=== PATIENT | male | born 1955 | race Caucasian/White ===

== ENCOUNTER 2018-02-20 18:31 | Inpatient (IN) | payer MEDICARE, OTHER ==
[~2018-02-20] VITALS: Ht 172.7 cm; Wt 98.0 kg
[2018-02-20 18:37] VITALS: BP 151/86
--- NOTE | 2018-02-20 18:42 | NUR ---
CAME IN WITH C/O EPIGASTRIC PAIN, VOMITING,X6 AND CHILLS, STARTED AT 1500HOUR.
--- NOTE | 2018-02-20 19:14 | NUR ---
RECIEVED REPORT FORM JORY SOTELO.
[2018-02-20] MEDS ORDERED: NACL 0.9% 500 ML IV ONE (19:25)
[2018-02-20] MEDS ORDERED: ONDANSETRON 4 MG/2 ML VIAL IVP ONE ×2 (19:25→19:45)
--- NOTE | 2018-02-20 19:33 | NUR ---
Dr. Sorenson evaluating patient at bedside.
[2018-02-20] MEDS ORDERED: PANTOPRAZOLE 40 MG INJ VIAL IVP ONE (19:45)
[2018-02-20] MEDS ORDERED: KETOROLAC 30 MG/ML VIAL IVP ONE (19:45)
--- NOTE | 2018-02-20 20:07 | NUR ---
PT TEMP 101.4, AMBER ZAMBRANO NOTIFIED
--- NOTE | 2018-02-20 20:19 | NUR ---
Ultrasound at bedside.
[2018-02-20] MEDS ORDERED: ACETAMINOPHEN 325 MG TAB PO ONE ×2 (20:25→20:35)
[2018-02-20 20:40] LABS: HEMOGLOBIN 15.1 g/dL (12.0-18.0); MEAN CORPUSCULAR HEMOGLOBIN 26 pg (27-31); MEAN CORPUSCULAR HGB CONC 32 g/dL (33-37); MEAN CORPUSCULAR VOLUME 81.7 fL (80-94); PLATELET COUNT (AUTO) 142 K/uL (140-450); RED BLOOD CELL COUNT(AUTO) 5.76 MIL/uL (4.20-6.10); RED CELL DISTRIBUTION WIDTH 13.3 % (11.6-13.7); WHITE BLOOD COUNT (AUTO) 6.9 K/uL (4.8-10.8)
[2018-02-20 20:58] LABS: ALBUMIN 3.8 g/dL (3.4-5.0); ANION GAP 12.3 (8-16); CARBON DIOXIDE 29.6 mmol/L (21-32); CREATININE 1.3 mg/dL (0.7-1.3); POTASSIUM 3.9 mmol/L (3.5-5.1); TOTAL BILIRUBIN 2.1 mg/dL (0.0-1.0)
[2018-02-20 20:59] LABS: LYMPHOCYTES % (MANUAL) 1 % (20-46); MONOCYTES % (MANUAL) 4 % (5-12)
[2018-02-20] MEDS ORDERED: NACL 0.9% 2,000 ML IV ONE (21:20)
[2018-02-20] MEDS ORDERED: PIPERACILLIN/TAZOBACTAM 3.375 GM in DEXTROSE 5% 50 ML IV ONE (21:20)
[2018-02-20] MEDS ORDERED: metroNIDAZOLE 500 MG/NS PREMIX 100 ML IV ONE (21:30)
[2018-02-20 21:38] LABS: PROTHROMBIN TIME 10.1 secs (10.8-13.4)
[2018-02-20] MEDS ORDERED: PIPERACILLIN/TAZOBACTAM 3.375 GM VIAL IV ONE (21:42)
[2018-02-20] MEDS ORDERED: ACETAMINOPHEN 325 MG TAB PO PRN (22:25)
[2018-02-20] MEDS ORDERED: DOCUSATE SODIUM 100 MG GELCAP PO PRN (22:25)
[2018-02-20] MEDS ORDERED: LORazepam 2 MG/ML VIAL IM/IVP PRN (22:25)
[2018-02-20] MEDS ORDERED: ONDANSETRON 4 MG/2 ML VIAL IM/IVP PRN (22:25)
[2018-02-20] MEDS ORDERED: ZOLPIDEM 5 MG TAB PO PRN (22:25)
[2018-02-20 23:00] VITALS: BP 99/54
--- NOTE | 2018-02-20 23:00 | NUR ---
ADMITTED A 62 M FROM ER. CAME BY GURADY AND ACCOMPANIED BY . CAME DUE TO EPIGASTRIC PAIN AND NAUSEA ,VOMITING. AWAKE,ALERT AND ORIENTED X4. AMBULATORY, SKIN INTACT. WITH IVF INFUSING ON THE LT AC G#20 . CLEAR AND PATENT. DENIES ANY PAIN AT THIS TIME. ORINETED PT TO HOSPITAL ROUTINES . PLAN OF CARE DISCUSSED AND VERBALIZED UNDERSTANDING. CALL LIGHT PLACED WITHIN EASY REACH. BED ON LOWEST POSITION. WILL FOLLOW UP ADMIT ORDERS AND WILL CONTINUE TO MONITOR.
--- NOTE | 2018-02-20 23:00 | NUR ---
Patient will be admitted to care of Gerard ZAMBRANO. Admited to tele via gurney with VSS. PT will go to room 104B. Belongings list completed. Report to Stacey SOTELO.
[2018-02-20 23:49] LABS: CHOL/HDL RATIO 5.5 (1-4.5); MAGNESIUM 1.6 mg/dL (1.8-2.4); PHOSPHORUS 1.4 mg/dL (2.5-4.9)
--- NOTE | 2018-02-21 00:34 | NUR ---
MAGNESIUM LEVEL 1.6 , DR LACEY MADE AWARE. WILL DO ORDERS.
--- NOTE | 2018-02-21 01:00 | NUR ---
TEMPERATURE TAKEN 98.6. DENIES PAIN. WILL CONTINUE TO MONITOR.
[2018-02-21 01:23] LABS: BARBITURATE, URINE NEG. ng/ml (NEG <=200); BENZODIAZEPINE, URINE NEG. ng/mL (NEG <=200); CANNABINOID, URINE NEG. ng/mL (NEG <=50); COCAINE, URINE NEG. ng/mL (NEG <=300); OPIATE, URINE NEG. ng/mL (NEG <=2000); PHENCYCLIDINE SCREEN,URINE NEG. ng/mL (NEG <=25)
[2018-02-21 01:29] LABS: APPEARANCE,URINE CLEAR (CLEAR); BILIRUBIN,URINE 1+ (NEGATIVE); BLOOD, URINE NEGATIVE (NEGATIVE); COLOR,URINE YELLOW (YELLOW); LEUKOCYTE ESTERASE ,URINE NEGATIVE (NEGATIVE); NITRITE, URINE NEGATIVE (NEGATIVE); PH,URINE 7.5 (5.0-9.0); UGLUCOSE NEGATIVE (NEGATIVE)
[2018-02-21] MEDS: NACL 0.9% 1,000 ML IV SCH ×4 (01:34→21:29)
[2018-02-21 01:38] LABS: RBC,URINE 0-5 (RARE) /HPF (0-5); WBC,URINE 0-5 (RARE) /HPF (0-5)
--- NOTE | 2018-02-21 02:00 | NUR ---
PT IS ASLEEP. NO S/S OF ANY DISCOMFORT NOR PAIN NOTED.
[2018-02-21] MEDS ORDERED: MAG SULF 2000 MG/WATER PREMIX 50 ML IV SCH (02:30)
[2018-02-21] MEDS ORDERED: SODIUM PHOS / POTASSIUM PHOS 1 PKT PDR PO SCH (02:30)
--- NOTE | 2018-02-21 03:17 | NUR ---
PT SAID OK TO GET FLU VACCINE HERE. DR. LACEY MADE AWARE.
[2018-02-21] MEDS ORDERED: INFLUENZA VIRUS VACCINE QUAD 0.5 ML SYR IMVAC PRN (03:20)
[2018-02-21 04:10] VITALS: BP 127/63
[2018-02-21] MEDS ORDERED: PIPERACILLIN/TAZOBACTAM 3.375 GM VIAL IV ONE (05:35)
[2018-02-21] MEDS: PIPER/TAZO 3.375GM/D5W PREMIX 50 ML IV SCH ×3 (05:42→18:53)
--- NOTE | 2018-02-21 06:00 | NUR ---
PT HAS BEEN STABLE DURING THE NIGHT . WITH NO FEVER NOR PAIN NOTED. NO NAUSEA /VOMITING ALSO NOTED.
[2018-02-21 06:02] LABS: HEMATOCRIT 42.4 % (36-52); HEMOGLOBIN 13.6 g/dL (12.0-18.0); LYMPHOCYTES # (AUTO) 0.1 K/uL (2.0-11.5); LYMPHOCYTES % (AUTO) 1.8 % (20.5-51.1); MEAN CORPUSCULAR HEMOGLOBIN 26 pg (27-31); MEAN CORPUSCULAR HGB CONC 32 g/dL (33-37); MEAN CORPUSCULAR VOLUME 81.7 fL (80-94); MONOCYTES # (AUTO) 0.2 K/uL (0.8-1.0); MONOCYTES % (AUTO) 3.2 % (1.7-9.3); NEUTROPHILS # (AUTO) 5.5 K/uL (1.8-7.7); PLATELET COUNT (AUTO) 129 K/uL (140-450); RED BLOOD CELL COUNT(AUTO) 5.19 MIL/uL (4.20-6.10); RED CELL DISTRIBUTION WIDTH 13.4 % (11.6-13.7); WHITE BLOOD COUNT (AUTO) 5.8 K/uL (4.8-10.8)
[2018-02-21] MEDS: SODIUM PHOS / POTASSIUM PHOS 1 PKT PDR PO SCH ×3 (06:44→16:30)
[2018-02-21 06:45] LABS: ANION GAP 13.5 (8-16); CARBON DIOXIDE 26.4 mmol/L (21-32); CREATININE 1.4 mg/dL (0.7-1.3); POTASSIUM 3.9 mmol/L (3.5-5.1)
[2018-02-21 06:46] LABS: MAGNESIUM 2.3 mg/dL (1.8-2.4); PHOSPHORUS 3.5 mg/dL (2.5-4.9)
--- NOTE | 2018-02-21 07:05 | NUR ---
ENDORSED PT IN STABLE CONDITION TO AM NURSE.
--- NOTE | 2018-02-21 07:10 | NUR ---
RECEIVED PT FROM HYDRAULIC TECHNICIAN NURSEALOK, PT IS ASLEEP LYING ON THE BED WITH AN IV LINE ON THE LEFT AC G. 20 WITH NS AT 130ML/HR, INFUSING, RESPIRATION EVEN AND NO SOB NOTED, PT DENIES PAIN AT THIS TIME. SIDE RAILS ARE UP AND CALL LIGHT WITHIHN REACH, NO SIGN OF DISTRESS NOTED AND WILL CONTINUE TO MONITOR PT.
[2018-02-21 08:00] VITALS: BP 121/64
--- NOTE | 2018-02-21 08:36 | NUR ---
PATIENT HAS BEEN SCREENED AND CATEGORIZED HIGH NUTRITION RISK. PATIENT WILL BE SEEN WITHIN 1-2 DAYS OF ADMISSION. 02/21/18-02/22/[address]
[2018-02-21] MEDS ORDERED: ONDANSETRON 4 MG/2 ML VIAL IVP ONE (10:55)
[2018-02-21] MEDS ORDERED: GLYCOPYRROLATE 0.2 MG/ML VIAL IV ONE (10:55)
[2018-02-21] MEDS ORDERED: DEXAMETHASONE 4 MG/ML VIAL IVP ONE (10:55)
[2018-02-21] MEDS ORDERED: PHENYLEPHRINE 10 MG/ML VIAL IV ONE (10:55)
[2018-02-21 12:00] VITALS: BP 117/64
--- NOTE | 2018-02-21 12:08 | NUR ---
PT IS AWAKE AND FAMILY ON THE BEDSIDE, MEDICATIONS GIVEN VIA ORAL AND IVPB AND PT TOLERATED IT, V/S TAKEN AND IS WITHIN NORMAL LIMIT. WILL CONTINUE TO MONITOR PT.
--- NOTE | 2018-02-21 12:45 | NUR ---
DR. LUNDBERG CAME TO PT'S ROOM AND ASSESSED THE PT. DR. LUNDBERG MADE A VERBAL ORDER TO OBTAIN CONSENT FROM THE PT FOR A LAPAROSCOPIC CHOLECYSTECTOMY CHOLANGIOGRAM WITH POSSIBLE OPEN. ACKNOWLEDGED AND WILL CARRY OUT ORDER.
[2018-02-21] MEDS ORDERED: BUPIVACAINE-MPF 0.25% 30 ML VIAL INJ ONE (14:01)
--- NOTE | 2018-02-21 14:08 | NUR ---
INFORMED DR. BALL OF THE SURGERY THAT DR. LUNDBERG WILL DO TO THE PT, LAPAROSCOPIC CHOLECYSTECTOMY CHOLANGIOGRAM WITH POSSIBLE OPEN, MD ACKNOWLEDGED AND SAID THAT SHE WILL PLACE THE ORDER.
--- NOTE | 2018-02-21 14:35 | NUR ---
PT WAS OF THE UNIT NOW FOR A LAPAROSCOPIC CHOLECYSTECTOMY CHOLANGIOGRAM WITH POSSIBLE OPEN AND WAS TAKEN BY OR NURSES. PT IS STABLE AT THIS TIME.
[2018-02-21] MEDS ORDERED: fentaNYL 0.05 MG/ML VIAL ONE (15:07)
[2018-02-21] MEDS ORDERED: HYDROmorphone PFS 2 MG/ML SYR ONE (15:07)
[2018-02-21] MEDS ORDERED: ROCURONIUM 50 MG/5 ML VIAL IV ONE (15:09)
[2018-02-21] MEDS ORDERED: SUCCINYLCHOLINE CHLORIDE 200 MG/10 ML VIAL IV ONE (15:09)
[2018-02-21] MEDS ORDERED: PROPOFOL 200 MG/20 ML VIAL IV ONE (15:09)
[2018-02-21] MEDS ORDERED: DESFLURANE 240 ML BTL INH ONE (15:09)
[2018-02-21] MEDS ORDERED: MORPHINE SULFATE 4 MG/ML SYR IVP PRN (15:15)
[2018-02-21] MEDS ORDERED: ACETAMINOPHEN/CODEINE 300/30MG 1 TAB PO PRN (15:15)
[2018-02-21] MEDS ORDERED: ONDANSETRON 4 MG/2 ML VIAL IVP PRN ×2 (15:15→17:20)
[2018-02-21] MEDS ORDERED: GLUCAGON 1 MG VIAL ONE (16:27)
[2018-02-21] MEDS ORDERED: HYDROmorphone 1 MG/ML AMP IVP PRN (17:20)
--- NOTE | 2018-02-21 17:42 | NUR ---
PATIENT OUT OF ROOM IN SURGERY AT THIS TIME WATCH CRYSTAL GRINDER TO ATTEMPT INCENTIVE SPIROMETRY THERAPY AT A LATER TIME WATCH CRYSTAL GRINDER TO ENDORSE TO NOC WATCH CRYSTAL GRINDER
[2018-02-21 17:52] LABS: ANION GAP 16.2 (8-16); CARBON DIOXIDE 24.7 mmol/L (21-32); CREATININE 1.5 mg/dL (0.7-1.3); POTASSIUM 3.9 mmol/L (3.5-5.1)
[2018-02-21 17:58] LABS: ALBUMIN 3.2 g/dL (3.4-5.0); TOTAL BILIRUBIN 3.5 mg/dL (0.0-1.0)
[2018-02-21 18:35] VITALS: BP 141/73
--- NOTE | 2018-02-21 18:35 | NUR ---
PT IS BACK TO ROOM FROM SURGERY, LAPAROSCOPIC CHOLECYSTECTOMY, CHOLANGIOGRAM WITH HIDA SCAN, V/S TAKEN AND IS WITHIN NORMAL LIMIT. PT DENIES PAIN AT THIS TIME AND WILL CONTINUE TO MONITOR PT.
--- NOTE | 2018-02-21 19:00 | NUR ---
PT WAS HOOKED UP TO HIS IV LINE AND MEDICATION WAS GIVEN VIA IVPB AND PT TOLERATED IT. PT WAS STARTED ON THE CLEAR LIQUID DIET ALSO AND IS TOLERATING IT, NO SIGN OF NAUSEA OR VOMITING. ISSA BULB WAS IN PLACE. WILL ENDORSED TO CHANCELLOR NURSE FOR MONITORING.
--- NOTE | 2018-02-21 19:20 | NUR ---
ENDORSED PT TO LAND LEASES AND RENTALS MANAGER NURSEANGI FOR CONTINUITY OF CARE. PT IS STABLE AT THIS TIME WITH FAMILY ON THE BEDSIDE.
--- NOTE | 2018-02-21 19:25 | NUR ---
RECEIVED PATIENT RESTING ON BED ACCOMPANIED BY FAMILY MEMBERS. EXPLAINED PLAN OF CARE. DENIES PAIN. BED IN LOW LOCKED POSITION. CALL LIGHT WITHIN REACH. WILL CONTINUE TO MONITOR.
--- NOTE | 2018-02-21 20:00 | NUR ---
V/ S TAKEN AND RECORDED. DENIES PAIN. NO S/STRESS NOTED. REPOSITIONED AND MACHINIST FIRST CLASS ASSISTED PATIENT TO THE BATHROOM. EXPLAINED PATIENT TO CALL FOR ASSISTANCE. BED IN LOW LOCKED POSITION. CALL LIGHT WITHIN REACH.
--- NOTE | 2018-02-21 20:00 | NUR ---
NOTIFIED DR. LACEY ABOUT BLOOD CULTURE RESULT NO NEW ORDER MADE. WILL CONTINUE TO MONITOR.
--- NOTE | 2018-02-21 20:30 | NUR ---
CHECKED ON PATIENT FOR IS. PT IS ASLEEP. WILL FOLLOW UP WHEN PT IS AWAKE.
[2018-02-21 21:13] LABS: ANION GAP 15.3 (8-16); CARBON DIOXIDE 24.4 mmol/L (21-32); CREATININE 1.7 mg/dL (0.7-1.3); POTASSIUM 3.7 mmol/L (3.5-5.1)
[2018-02-21 21:19] LABS: TOTAL BILIRUBIN 4.7 mg/dL (0.0-1.0)
--- NOTE | 2018-02-21 22:25 | NUR ---
CALLED DR. LUNDBERG AND RELY THE MESSAGE ABOUT THE CMP RESULT. NO NEW ORDERS MADE EXCEPT CBC, CMP.
[2018-02-22] VITALS: BP 132/77
--- NOTE | 2018-02-22 | NUR ---
V/S TAKEN AND RECORDED. TEMPERATURE 103, MEDICATION GIVEN. NO S/S OF DISTRESS NOTED. REPOSITIONED PATIENT AND PLACE IN COMFORTABLE POSITION. CALL LIGHT WITHIN REACH. ALL NEEDS ATTENDED.
[2018-02-22] MEDS: PIPER/TAZO 3.375GM/D5W PREMIX 50 ML IV SCH ×5 (00:19→23:36)
[2018-02-22] MEDS: KETOROLAC 15 MG/ML VIAL IVP PRN ×3 (00:26→20:44)
--- NOTE | 2018-02-22 02:00 | NUR ---
SEEN PATIENT RESTING. NO S/S OF DISTRESS NOTED. ALL NEEDS ATTENDED. CALL LIGHT WITHIN REACH.
[2018-02-22 04:00] VITALS: BP 120/65
--- NOTE | 2018-02-22 04:00 | NUR ---
V/S TAKEN AND RECORDED. DENIES PAIN. DRESSING REINFORCED. NO S/S OF DISTRESS NOTED. REPOSITIONED AND PLACED IN COMFORTABLE POSITION. ALL NEEDS ATTENDED.
[2018-02-22] MEDS: NACL 0.9% 1,000 ML IV SCH ×3 (04:53→20:54)
[2018-02-22 06:15] LABS: BASOPHILS % (AUTO) 0.1 % (0.0-2.0); HEMATOCRIT 39.6 % (36-52); HEMOGLOBIN 12.8 g/dL (12.0-18.0); LYMPHOCYTES # (AUTO) 0.2 K/uL (2.0-11.5); LYMPHOCYTES % (AUTO) 3.3 % (20.5-51.1); MEAN CORPUSCULAR HEMOGLOBIN 27 pg (27-31); MEAN CORPUSCULAR HGB CONC 32 g/dL (33-37); MEAN CORPUSCULAR VOLUME 82.2 fL (80-94); MONOCYTES # (AUTO) 0.2 K/uL (0.8-1.0); MONOCYTES % (AUTO) 3.1 % (1.7-9.3); NEUTROPHILS # (AUTO) 6.1 K/uL (1.8-7.7); NEUTROPHILS % (AUTO) 93.5 % (42.2-75.2); PLATELET COUNT (AUTO) 113 K/uL (140-450); RED BLOOD CELL COUNT(AUTO) 4.81 MIL/uL (4.20-6.10); RED CELL DISTRIBUTION WIDTH 13.6 % (11.6-13.7); WHITE BLOOD COUNT (AUTO) 6.6 K/uL (4.8-10.8)
[2018-02-22 06:52] LABS: ALBUMIN 2.6 g/dL (3.4-5.0); CARBON DIOXIDE 23.8 mmol/L (21-32); CREATININE 1.7 mg/dL (0.7-1.3); PHOSPHORUS 3.5 mg/dL (2.5-4.9); POTASSIUM 3.8 mmol/L (3.5-5.1); TOTAL BILIRUBIN 3.2 mg/dL (0.0-1.0)
--- NOTE | 2018-02-22 07:20 | NUR ---
ENDORSEMENT GIVEN TO AM SHIFT RN AT BEDSIDE FOR CONTINUITY OF CARE. PATIENT IN STABLE CONDITION. CALL LIGHT WITHIN REACH.
[2018-02-22] MEDS: SODIUM PHOS / POTASSIUM PHOS 1 PKT PDR PO SCH ×3 (07:27→18:30)
[2018-02-22 08:00] VITALS: BP 137/80
[2018-02-22 12:00] VITALS: BP 126/71
--- NOTE | 2018-02-22 12:30 | NUR ---
CM NOTE CHART REVIEW DONE
--- NOTE | 2018-02-22 13:49 | NUR ---
CHECKED ON PT. FAMILY MEMBER AT BEDSIDE, STATES PT WENT TO OR. PT OFF THE UNIT.
[2018-02-22] MEDS ORDERED: KETAMINE 500 MG/5 ML VIAL ONE (13:54)
[2018-02-22] MEDS ORDERED: LABETALOL 100 MG/20 ML VIAL IVP ONE (13:56)
--- NOTE | 2018-02-22 14:08 | NUR ---
02/22/18 RD INITIAL ASSESSMENT COMPLETED PLEASE REFER TO NUTRITION ASSESSMENT UNDER CARE ACTIVITY FOR ESTIMATED NUTRITIONAL NEEDS. 1. CONTINUE NPO MEDICALLY NECESSARY 2. RECOMMEND ADVANCING DIET TO CLEAR LIQUIDS WHEN PT IS MEDICALLY STABLE. IF TOLERATING CLEAR LIQUIDS ADVANCE TO FULL LIQUIDS, FOLLOWING A BLAND DIET TOLERATED. 3. RD PROVIDED NUTRITION EDUCATION ON GALLBLADDER NUTRITION THERAPY 4. RD TO FOLLOW-UP 5-7 DAYS, LOW RISK FRANKIE SAM RD
[2018-02-22] MEDS ORDERED: ONDANSETRON 4 MG/2 ML VIAL IVP PRN (14:15)
[2018-02-22] MEDS ORDERED: BLOOD GLUCOSE MONITORING 1 DEV DEV FS SCH (14:15)
[2018-02-22] MEDS ORDERED: HYDROmorphone 1 MG/ML AMP IVP PRN (14:15)
--- NOTE | 2018-02-22 14:35 | NUR ---
PT BACK FROM OR. DR PEREYRA PERFORMED ERCP WITH SPHINCTERECTOMY AND BALLOON SWEEP. DX WAS STETONIC AMPULLA OF VATER. PT STABLE, AAKE , RECEIVED REPORT FROM OR NURSE. PT AWAKE AND ALERT/ VS RECORDED BP 121/73, HR 86, O2 SAT 92% ON RA, T 98.5. RR 16. NO SIGN OF DISTRESS NOTED. ALL SAFETY MEASURE IN PLACE. WILL CONTINUE TO MONITOR PT.
[2018-02-22 16:00] VITALS: BP 120/74
--- NOTE | 2018-02-22 16:30 | NUR ---
CHECKED ON PT. FAMILY AT BEDSIDE. VS RECORDED NORMAL. NO SIGN OF DISTRESS NOTED. PT 02 SAT 92% ON RA. DENIES ANY DISCOMFORT AT THIS TIME. WILL CONTINUE TO MONITOR FOR ANY CHANGE IN CONDITION IN PT. CALL LIGHT WITHIN PT REACH.
[2018-02-22 17:55] LABS: ALBUMIN 2.6 g/dL (3.4-5.0); ANION GAP 15.4 (8-16); CARBON DIOXIDE 21.4 mmol/L (21-32); CREATININE 1.5 mg/dL (0.7-1.3); POTASSIUM 3.8 mmol/L (3.5-5.1); TOTAL BILIRUBIN 3.3 mg/dL (0.0-1.0)
--- NOTE | 2018-02-22 19:15 | NUR ---
RECEIVED ENDORSEMENT FORM JESÚS RN DAYSHIFT NURSE AT BEDSIDE FOR CONTINUITY OF CARE, PT IN STABLE CONDITION.
--- NOTE | 2018-02-22 19:15 | NUR ---
ENDORSED PT TO PM NURSE . PT IN STABLE CONDITION.
[2018-02-22 20:00] VITALS: BP 131/74
--- NOTE | 2018-02-22 21:00 | NUR ---
PT LYING IN BED SIDE RAILS HE SI KYRGYZ SPEAKING AND AOX4, AT BEDSIDE. V/S FOLLOWS T 98.9 P 86 RR 20 B/P 131/74 02 93% ON R/A. PT HAS DRESSING ON ABD AND SERGIO DRAIN IS DRAINING A MINIMAL AMOUNT OF BLOOD. DRESSINGS WERE REINFORCED. LUNG SOUNDS DIMINISHED WITH SLIGHT AMOUNT OF RHONCHI NOTED PT IS STATING 93% ON ROOM AIR AND DECLINES SUPPLEMENTAL 02 DUE TO DISCOMFORT OF THE NARES. ABDOMEN IS FIRM AND DISTENDED BUT HAS B/S IN ALL 4 QUADS. PT C/O 6/10 PAIN AND WAS GIVEN TORADOL 15MG/1ML IVP ORDERED. WILL CONTINUE TO MONITOR PT FOR PAIN , SERGIO AND WOUND DRAINAGE.
--- NOTE | 2018-02-22 22:35 | NUR ---
ENDORSED CARE TO GATTMAN RN DAYSHIFT NURSE FOR CONTINUITY OF CARE, PT IN STABLE CONDITION.
--- NOTE | 2018-02-22 22:36 | NUR ---
RECEIVED BEDSIDE REPORT FROM ANGEL LUIS SOTELO, PT STABLE, NO DISTRESS NOTED, IV TO L AC 20G, PATENT, INTACT INFUSING NS @ 130ML/HR, INFUSING WELL, PT ON ROOM AIR, NO SOB NOTED, PT SLEEPING, NO DISTRESS NOTED, CALL LIGHT WITHIN REACH, WILL CONTINUE WITH CURRENT POC. WILL CONTINUE TO MONITOR.
--- NOTE | 2018-02-22 23:36 | NUR ---
CHECKED ON PT, PT SLEEPING, NO DISTRESS NOTED, V/S TAKEN, WNL, DUE MEDICATION ADMINISTERED, PT TOLERATED WELL, NO DISTRESS NOTED, CALL LIT WITHIN REACH, WILL CONTINUE TO MONITOR.
[2018-02-23] VITALS: BP 136/78
[2018-02-23 04:00] VITALS: BP 133/66
[2018-02-23] MEDS: NACL 0.9% 1,000 ML IV SCH ×2 (04:17→20:40)
--- NOTE | 2018-02-23 04:31 | NUR ---
CHECKED ON PT, PT SLEEPING, NO DISTRESS NOTED, CALL LIGHT WITHIN REACH, WILL CONTINUE TO MONITOR.
[2018-02-23] MEDS: PIPER/TAZO 3.375GM/D5W PREMIX 50 ML IV SCH ×3 (05:51→17:02)
--- NOTE | 2018-02-23 06:21 | NUR ---
PT WALKED TO RESTROOM AND BACK TO BED, DUE MEDICATION ADMINISTERED, PT TOLERATED WELL, NO DISTRESS NOTED, CALL LIGHT WITHIN REACH, WILL CONTINUE TO MONITOR.
[2018-02-23] MEDS: SODIUM PHOS / POTASSIUM PHOS 1 PKT PDR PO SCH ×3 (06:24→15:50)
[2018-02-23 06:32] LABS: BASOPHILS % (AUTO) 0.6 % (0.0-2.0); EOSINOPHILS % (AUTO) 0.2 % (0.0-4.0); HEMATOCRIT 39.2 % (36-52); HEMOGLOBIN 12.6 g/dL (12.0-18.0); LYMPHOCYTES # (AUTO) 0.2 K/uL (2.0-11.5); LYMPHOCYTES % (AUTO) 3.1 % (20.5-51.1); MEAN CORPUSCULAR HEMOGLOBIN 26 pg (27-31); MEAN CORPUSCULAR HGB CONC 32 g/dL (33-37); MEAN CORPUSCULAR VOLUME 81.5 fL (80-94); MONOCYTES # (AUTO) 0.3 K/uL (0.8-1.0); MONOCYTES % (AUTO) 4.7 % (1.7-9.3); NEUTROPHILS # (AUTO) 5.4 K/uL (1.8-7.7); NEUTROPHILS % (AUTO) 91.4 % (42.2-75.2); PLATELET COUNT (AUTO) 125 K/uL (140-450); RED BLOOD CELL COUNT(AUTO) 4.81 MIL/uL (4.20-6.10); RED CELL DISTRIBUTION WIDTH 13.9 % (11.6-13.7)
--- NOTE | 2018-02-23 07:28 | NUR ---
ENDORSED PT TO DAY SHIFT NURSE VICENTE SOTELO, PT STABLE, NO DISTRESS NOTED, CALL LIGHT WITHIN REACH.
--- NOTE | 2018-02-23 07:33 | NUR ---
RECEIVED PT FROM TRAINING AND DEVELOPMENT REP NURSE, MARIO, PT IS AWAKE AND LYING ON THE BED WITH SIDE RAILS UP AND CALL LIGHT WITHIN REACH, PT HAS AN IV LINE ON THE LEFT AC G. 20 WITH NS AT 10ML/HR, INFUSING, PT HAS A SERGIO BULB IN PLACE AND SURGICAL INCISION IS INTACT, DRESSING DRY, PT DENIES PAIN ATT HIS TIME AND NO SOB NOTED. NO SIGN OF DISTRESS NOTED AND WILL CONTINUE TO MONITOR PT.
[2018-02-23 07:54] LABS: ALBUMIN 2.4 g/dL (3.4-5.0); BILIRUBIN,DIRECT 4.1 mg/dL (0.0-0.3); TOTAL BILIRUBIN 4.9 mg/dL (0.0-1.0)
[2018-02-23 08:00] VITALS: BP 143/82
--- NOTE | 2018-02-23 08:30 | NUR ---
PT IS AWAKE WITH ON THE BEDSIDE, VITAL SIGNS TAKEN AND IS WITHIN NORMAL LIMIT, PT DENIES PAIN AND WILL CONTINUE TO MONITOR.
[2018-02-23] MEDS ORDERED: DEXTROSE 50% 50 ML SYR IVP PRN (10:35)
[2018-02-23] MEDS: HYDROcodone/APAP 5/325 MG 1 TAB TAB PO PRN ×2 (11:13→15:50)
[2018-02-23 11:20] LABS: CHOL/HDL RATIO 16.2 (1-4.5)
[2018-02-23] MEDS: BLOOD GLUCOSE MONITORING 1 DEV DEV FS SCH ×3 (11:23→21:00)
[2018-02-23] MEDS: INSULIN LISPRO SLIDING SCALE 100 UNITS/ML VIAL SUBQ PRN ×2 (11:26→20:17)
--- NOTE | 2018-02-23 11:27 | NUR ---
PT IS AWAKE AND SEATED ON THE BED, FAMILY ON THE BEDSIDE, VITAL SIGNS TAKEN PRIOR TO NORCO ADMINISTRATION AND RESULT IS WITHIN NORMAL LIMIT, BLOOD GLUCOSE CHECK AND RESULT IS 163, INSULIN 2 UNITS WAS GIVEN ON THE LEFT UA AND PT TOLERATED IT, IV MEDICATION WAS GIVEN WELL, WILL CONTINUE TO MONITOR PT.
--- NOTE | 2018-02-23 11:30 | NUR ---
PT IS AWAKE AND SEATED ON THE BED, WITH FAMILY ON THE BEDSIDE, PT WAS TRANSFERRED TO [facility] AND HEART MONITOR WAS REMOVED AND HANDED TO CONCRETE BOOM PUMP OPERATOR, ROSE, NO SIGN OF DISTRESS NOTED. WILL CONTINUE TO MONITOR PT.
--- NOTE | 2018-02-23 12:00 | NUR ---
DRAINED 15ML OF BLOOD FROM THE SERGIO BULB. DRESSING INTACT AND DRY.
--- NOTE | 2018-02-23 15:56 | NUR ---
PT IS AWAKE AND FAMILY ON THE BEDSIDE, PT VERBALIZED A PAIN RATE OF 7/10 AND MEDICATION WAS GIVEN, V/S IS WITHIN NORMAL LIMIT. WILL RE-ASSESS PAIN IN AN HOUR.
[2018-02-23 16:00] VITALS: BP 139/80
[2018-02-23] MEDS: metFORMIN 500 MG TAB PO SCH (17:01)
--- NOTE | 2018-02-23 17:02 | NUR ---
PT IS AWAKE AND IV AND ORAL; MEDICATIONS GIVEN AND PT TOLERATED IT, NO SIGN OF DISTRESS NOTED AND WILL CONTINUE TO MONITOR PT.
--- NOTE | 2018-02-23 17:45 | NUR ---
PT IS AWAKE AND SERGIO BULB WAS DRAINED WITH 20 ML OF BLOOD, REPORTED TO CHARGE NURSE, FRITZ.
--- NOTE | 2018-02-23 19:20 | NUR ---
ENDORSED PT TO REFINING ENGINEER NURSE, SHARYN, FOR CONTINUITY OF CARE. PT IS AWAKE WITH ON THE BEDSIDE AND STABLE.
--- NOTE | 2018-02-23 19:21 | NUR ---
RECEIVED REPORT FROM DAYSHIFT NURSE AT BEDSIDE FOR CONTINUITY OF CARE. PT AAOX4. PT TAJIK AND ARGENTINE. NO SOB NO S/S OF DISTRESS ON RA. IV NOTED LAC 20G NS 80ML/HR. BED LOWERED CALL LIGHT WITHIN REACH WILL CONTINUE TO MONITOR.
[2018-02-23 20:00] VITALS: BP 130/70
[2018-02-24] VITALS: BP 128/71
[2018-02-24] MEDS: PIPER/TAZO 3.375GM/D5W PREMIX 50 ML IV SCH ×2 (01:15→05:29)
[2018-02-24] MEDS: SODIUM PHOS / POTASSIUM PHOS 1 PKT PDR PO SCH (06:45)
[2018-02-24] MEDS: BLOOD GLUCOSE MONITORING 1 DEV DEV FS SCH (06:45)
[2018-02-24 07:29] LABS: BASOPHILS % (AUTO) 0.2 % (0.0-2.0); EOSINOPHILS % (AUTO) 0.6 % (0.0-4.0); HEMATOCRIT 37.9 % (36-52); HEMOGLOBIN 12.3 g/dL (12.0-18.0); LYMPHOCYTES # (AUTO) 0.4 K/uL (2.0-11.5); LYMPHOCYTES % (AUTO) 8.9 % (20.5-51.1); MEAN CORPUSCULAR HEMOGLOBIN 27 pg (27-31); MEAN CORPUSCULAR HGB CONC 33 g/dL (33-37); MEAN CORPUSCULAR VOLUME 81.4 fL (80-94); MONOCYTES # (AUTO) 0.4 K/uL (0.8-1.0); MONOCYTES % (AUTO) 7.9 % (1.7-9.3); NEUTROPHILS # (AUTO) 3.9 K/uL (1.8-7.7); NEUTROPHILS % (AUTO) 82.4 % (42.2-75.2); PLATELET COUNT (AUTO) 145 K/uL (140-450); RED BLOOD CELL COUNT(AUTO) 4.66 MIL/uL (4.20-6.10); RED CELL DISTRIBUTION WIDTH 13.6 % (11.6-13.7); WHITE BLOOD COUNT (AUTO) 4.8 K/uL (4.8-10.8)
--- NOTE | 2018-02-24 07:33 | NUR ---
ENDORSED REPORT TO DAYSHIFT FOR CONTINUITY OF CARE.
--- NOTE | 2018-02-24 07:38 | NUR ---
RECEIVED BEDSIDE REPORT FROM CAFETERIA FOOD SERVER NURSE. PT IS AWAKE, RESTING IN BED, AOX4. FAMILY MEMBER AT BEDSIDE. C/O 4/10 TOLERABLE INCISIONAL PAIN. NO S/S DISTRESS. DENIES NEED FOR PAIN MEDS AT THIS TIME. DRESSINGS ON ABD S/P LAP CHELA C/D/I. SERGIO DRAIN TO RT LOWER ABD. PT IS AMBULATORY. IV SITE PATENT AND ASYMPTOMATIC, INFUSING IVF PER ORDERS. ALL SAFETY PRECAUTIONS IN PLACE, WILL CONTINUE TO MONITOR.
[2018-02-24 08:04] LABS: ALBUMIN 2.2 g/dL (3.4-5.0); ANION GAP 13.2 (8-16); CARBON DIOXIDE 24.7 mmol/L (21-32); CREATININE 1.2 mg/dL (0.7-1.3); POTASSIUM 3.9 mmol/L (3.5-5.1); TOTAL BILIRUBIN 3.8 mg/dL (0.0-1.0)
[2018-02-24] MEDS: metFORMIN 500 MG TAB PO SCH (08:47)
--- NOTE | 2018-02-24 08:47 | NUR ---
SCHEDULED MEDICATIONS ADMINISTERED PER MD ORDERS. ADMINISTERED NORCO FOR PT C/O 4/10 INCISIONAL PAIN.
[2018-02-24] MEDS: HYDROcodone/APAP 5/325 MG 1 TAB TAB PO PRN (08:48)
[2018-02-24] MEDS: NACL 0.9% 1,000 ML IV SCH (08:48)
[2018-02-24] MEDS ORDERED: METR500T1 PO (09:44)
[2018-02-24] MEDS ORDERED: ACET-9525 PO (09:44)
[2018-02-24] MEDS ORDERED: GLUC-805 FS (09:44)
[2018-02-24] MEDS ORDERED: LEVO500T2 PO (09:44)
[2018-02-24] MEDS ORDERED: METF500T PO (09:44)
--- NOTE | 2018-02-24 10:38 | NUR ---
ADMINISTERED FLU VACCINE. FLU VACCINATION TEACHING GIVEN. PT IS KOREAN SPEAKING BUT PREFERS FAMILY MEMBER AT BEDSIDE TO TRANSLATE. PT AND FAMILY MEMBER VERBALIZED COMPLETE UNDERSTANDING.
--- NOTE | 2018-02-24 11:13 | NUR ---
SERGIO DRAIN REMOVED. PT TOLERATED WELL. NO BLOOD LOSS. SMALL AMOUNT OF SEROUS DRAINAGE. PHOTO TAKEN.
--- NOTE | 2018-02-24 11:35 | NUR ---
DISCHARGE PAPERWORK, INCLUDING NEW PRESCRIPTIONS AND INSTRUCTIONS TO FOLLOW UP WITH PCP AND SURGEON DR. LUNDBERG, GIVEN TO PT. PT INSTRUCTED TO CALL DOCTORS FOR APPOINTMENT TIME. NEW MEDICATION TEACHING AND MED RECONCILIATION TEACHING GIVEN. PT IS INDONESIAN SPEAKING BUT PREFERS FAMILY MEMBER AT BEDSIDE TO TRANSLATE. PT AND FAMILY MEMBER VERBALIZED COMPLETE UNDERSTANDING. IV SITE REMOVED WITH MINIMAL BLOOD LOSS AND LUMEN COMPLETELY INTACT. ID BANDS REMOVED. ALL PERSONAL BELONGINGS WITH PT. WILL GO HOME WITH FAMILY MEMBERS VIA PRIVATE VEHICLE. Addendum: 02/24/18 at 1625 by Beba Galeana Meng, RN PT EDUCATED ON INCISION CARE. PHOTOS TAKEN. EXTRA BANDAGES PROVIDED. PT AND FAMILY VERBALIZED COMPLETE UNDERSTANDING OF ALL TEACHING.
--- NOTE | 2018-02-24 11:40 | NUR ---
LEFT WITH FAMILY MEMBERS. ALL PERSONAL BELONGINGS WITH PT. PT IN STABLE CONDITION.
--- NOTE | 2018-02-24 11:40 | NUR ---
ADMINISTERED FLU VACCINE. FLU VACCINATION TEACHING GIVEN. PT IS AUSTRALIAN SPEAKING BUT PREFERS FAMILY MEMBER AT BEDSIDE TO TRANSLATE. PT AND FAMILY MEMBER VERBALIZED COMPLETE UNDERSTANDING. Addendum: 02/24/18 at 1615 by Beba Galeana Meng, RN REAL TIME [id number]
== END 2018-02-24 11:40 | disposition home or self-care (01) | DRG 853 ==
LOC: MED 18:31 → CANBEDREQ 18:55 → MTU 22:23
PROVIDERS: ADMIT General Practice; ATTEND General Practice
PROC: 0FN44ZZ Release Gallbladder, Percutaneous Endoscopic Approach (ICD-10-PCS; 2018-02-21)
PROC: BF131ZZ Fluoroscopy of Gallbladder and Bile Ducts using Low Osmolar Contrast (ICD-10-PCS; 2018-02-21)
PROC: 0FT44ZZ Resection of Gallbladder, Percutaneous Endoscopic Approach (ICD-10-PCS; principal; 2018-02-21 13:00)
PROC: 0F798ZZ Dilation of Common Bile Duct, Via Natural or Artificial Opening Endoscopic (ICD-10-PCS; 2018-02-22)
PROC: 3E02340 Introduction of Influenza Vaccine into Muscle, Percutaneous Approach (ICD-10-PCS; 2018-02-24)
DX: A41.9 Sepsis, unspecified organism (principal); E43 Unspecified severe protein-calorie malnutrition; K80.67 Calculus of gallbladder and bile duct with acute and chronic cholecystitis with obstruction; N17.0 Acute kidney failure with tubular necrosis; E83.42 Hypomagnesemia; E83.39 Other disorders of phosphorus metabolism; E66.9 Obesity, unspecified; K66.0 Peritoneal adhesions (postprocedural) (postinfection); Z68.32 Body mass index [BMI] 32.0-32.9, adult; E11.65 Type 2 diabetes mellitus with hyperglycemia; E78.5 Hyperlipidemia, unspecified; M47.9 Spondylosis, unspecified; E86.0 Dehydration; B96.20 Unspecified Escherichia coli [E. coli] as the cause of diseases classified elsewhere; Z23 Encounter for immunization
CPT/HCPCS: 36415; 71045; 74018; 76705; 80048; 80053; 80076; 80305; 81001; 82150; 82948; 83036; 83605; 83690; 83735; 83880; 84100; 84439; 84443; 84484; 85025; 85610; 85730; 87040; 87081; 87086; 87186; 90658; 93005; 96361; 96365; 96367; 96375; 99285; C9113; J0330; J1100; J1170; J1610; J1815; J1885; J2370; J2405; J2543; J2704; J3010; J3475; J3490; J7030; J7060; Q0092